=== PATIENT | male | born 1960 | race African-American/Black ===

== ENCOUNTER 2022-10-06 16:59 | Emergency (ER) | payer MEDICAID, OTHER ==
[~2022-10-06] VITALS: Ht 182.9 cm; Wt 122.5 kg
--- NOTE | 2022-10-06 17:00 | NUR ---
Patient to ER bed 06 to gown for evaluation. Side rails up.
[2022-10-06 17:03] VITALS: BP_SYST 169
--- NOTE | 2022-10-06 17:05 | NUR ---
ER DR. GALLARDO AT THE BEDSIDE EXAMINING PT
[2022-10-06] MEDS ORDERED: LIDOCAINE 1% 10 MG/ML, 20 ML MDV INJ ONE (17:30)
[2022-10-06] MEDS ORDERED: DIPHTH,PERTUSS(ACELL),TET VAC 0.5 ML VIAL (Tdap) I.M. ONE (17:30)
[2022-10-06] MEDS ORDERED: BACITRACIN 1 GM OINT TP ONE (17:30)
[2022-10-06 18:20] VITALS: BP_SYST 147
--- NOTE | 2022-10-06 18:21 | NUR ---
Patient given written and verbal discharge instructions and verbalizes understanding. ER MD discussed with patient the results and treatment provided. Patient in stable condition. ID arm band removed. NO Rx given. Patient educated on pain management and to follow up with PMD. Pain Scale 0/10. Opportunity for questions provided and answered. Medication side effect fact sheet provided.
== END 2022-10-06 18:20 | disposition home or self-care (01) ==
LOC: SED 16:59
DX: S61.011A Laceration without foreign body of right thumb without damage to nail, initial encounter (principal); Z79.899 Other long term (current) drug therapy; W31.2XXA Contact with powered woodworking and forming machines, initial encounter; Y93.89 Activity, other specified; Y92.89 Other specified places as the place of occurrence of the external cause; Y99.8 Other external cause status
CPT/HCPCS: 99282

== ENCOUNTER 2022-10-16 17:22 | Emergency (ER) | payer MEDICAID ==
[~2022-10-16] VITALS: Ht 185.4 cm; Wt 122.5 kg
[2022-10-16 17:33] VITALS: BP_SYST 145
[2022-10-16] MEDS ORDERED: CEPH-548 PO (17:45)
[2022-10-16 18:02] VITALS: BP_SYST 135
== END 2022-10-16 18:02 | disposition home or self-care (01) ==
LOC: SED 17:22
DX: Z48.02 Encounter for removal of sutures (principal); T81.49XA Infection following a procedure, other surgical site, initial encounter; Z79.899 Other long term (current) drug therapy
CPT/HCPCS: 99283